=== PATIENT | female | born 1930 | race Caucasian/White ===

== ENCOUNTER → 2017-10-28 | Outpatient (CLI) | payer MEDICARE, BC ==
--- NOTE | 2017-10-28 10:43 | RADIOLOGY REPORT (SQ) ---
EXAM DESCRIPTION: CT ABD/PELVIS ORAL ONLY COMPLETED DATE/TIME: 10/28/2017 9:34 am REASON FOR STUDY: R10.33 PERIUMBILICAL PAIN K62.5 HEMORRHAGE OF ANUS AND RECTUM R14.0 ABDOMIN R10.33 PERIUMBILICAL PAIN K62.5 HEMORRHAGE OF ANUS AND RECTUM R14.0 ABDOMINAL DISTENSION (GASEOUS) COMPARISON: None. TECHNIQUE: CT scan of the abdomen and pelvis performed with oral contrast and no intravenous contras t. Images reviewed with lung, soft tissue, and bone windows. Reconstructed coronal and sagittal MPR i mages reviewed. All images stored on PACS. All CT scanners at this facility use dose modulation, iterative reconstruction, and/or weight based d osing when appropriate to reduce radiation dose to as low as reasonably achievable (ALARA). [facility]: Dose Right [facility]: CareDose [facility]: Dose Right [facility]: Teradose 4D [facility]: bluebird bio RADIATION DOSE: CT Rad equipment meets quality standard of care and radiation dose reduction techniq ues were employed. CTDIvol: 12.8 mGy. DLP: 582 mGy-cm.mGy. LIMITATIONS: None. FINDINGS: LOWER CHEST: No significant findings. No nodules or infiltrates. NON-CONTRASTED LIVER, SPLEEN, ADRENALS: Mildly macro nodular contours but no gross mass in the liver. Spleen unremarkable. No adrenal mass evident. PANCREAS: No masses. No peripancreatic inflammatory changes. GALLBLADDER: No identified stones by CT criteria. No inflammatory changes to suggest cholecystitis. RIGHT KIDNEY AND URETER: No solid masses. No significant calcification. No hydronephrosis or hydroure ter. LEFT KIDNEY AND URETER: No solid masses. No significant calcification. No hydronephrosis or hydrouret er. AORTA AND RETROPERITONEUM: Dense aortic calcification without suggestion of focal aneurysm. Some pro ximal aortic ectasia but maximal diameter remains less than 3 cm. No retroperitoneal mass or adenopa thy. BOWEL AND PERITONEAL CAVITY: Sigmoid diverticulosis without active inflammation. Moderate stool in t he colon proximal to this. No dilated small bowel loops. No gross mass or wall thickening. No evid ence of ascites or abnormal gas or bulky implants/ adenopathy. APPENDIX: Not visualized. PELVIS, BLADDER, AND ABDOMINAL WALL: Probable fibroid uterus. No pelvic free fluid or mass otherwise . Bladder unremarkable. No abdominal wall mass or hernia evident. BONES: Spondylosis. OTHER: No other significant finding. IMPRESSION: 1. No acute or suspicious abdominopelvic abnormality. 2. Incidental findings include sl ight nodular liver contours, atherosclerosis with mild proximal aortic ectasia and sigmoid diverticul osis without active inflammatory changes suggested. TECHNICAL DOCUMENTATION: JOB ID: [id number] Quality ID # [id number]: Final reports with documentation of one or more dose reduction techniques (e.g., Au tomated exposure control, adjustment of the mA and/or kV according to patient size, use of iterative reconstruction technique) 2010 [employer]- All Rights Reserved Reading location - IP/workstation name: [email or web address]
== END ==
LOC: RAD 09:26
PROVIDERS: ATTEND Internal Medicine Gastroenterology
DX: R10.33 Periumbilical pain (principal); K62.5 Hemorrhage of anus and rectum; R14.0 Abdominal distension (gaseous); K57.30 Diverticulosis of large intestine without perforation or abscess without bleeding
CPT/HCPCS: 74176